=== PATIENT | male | born 1955 | race Caucasian/White ===

== ENCOUNTER 2017-07-18 09:07 | Outpatient (CLI) | payer BC ==
[2017-07-18 10:26] LABS: ALT (SGPT) 11 U/L (8-55); AST (SGOT) 17 U/L (5-34); Albumin 4.2 g/dL (3.4-4.8); Alkaline Phosphatase 74 U/L (40-150); Anion Gap 10 mmol/L (10-20); BUN (Urea Nitrogen) 13 mg/dL (8.4-25.7); Bilirubin, Total 0.6 mg/dL (0.2-1.2); Calc. Creatinine Clearance 0 mL/min (70-130); Calcium 9.6 mg/dL (7.8-10.44); Carbon Dioxide 31 mmol/L (23-31); Chloride 104 mmol/L (98-107); Estimated GFR-MDRD Greater than 90; Globulin 2.3 g/dL (2.4-3.5); Glucose 86 mg/dL (80-115); Potassium 4.9 mmol/L (3.5-5.1); Protein, Total 6.5 g/dL (5.8-8.1); Sodium 140 mmol/L (136-145)
[2017-07-18 11:43] LABS: Eosinophils 1 % (0-10); Hemoglobin 14.9 g/dL (14.0-18.0); Lymphocytes 66 % (21-51); MDiff Complete? YES; Mean Corpuscular HGB CONC 33.3 g/dL (32.0-36.0); Mean Corpuscular Hemoglobin 29.9 pg (27.0-31.0); Mean Corpuscular Volume 89.5 fl (80.0-94.0); Mean Platelet Volume 8.4 fL (7.4-10.4); Monocytes 3 % (0-10); Neutrophil 11 % (42-75); Platelet Count 123 thou/uL (130-400); RBC Distribution Width 12.1 % (11.5-14.5); Reactive Lymphocytes 19 % (0-10); Red Blood Cell (RBC) Count 4.99 mill/uL (4.70-6.10); White Blood Cell (WBC) Count 22.7 thou/uL (4.8-10.8)
--- NOTE | 2017-07-18 21:11 | EKG ---
Test Reason : Blood Pressure : / mmHG Vent. Rate : 061 BPM Atrial Rate : 061 BPM P-R Int : 174 ms QRS Dur : 098 ms QT Int : 372 ms P-R-T Axes : 060 059 068 degrees QTc Int : 374 ms Normal sinus rhythm Normal ECG No previous ECGs available Confirmed by ZOILA VELASQUEZ ([id number]) on 07/18/2017 9:11:38 PM Referred By: BRIELLE Confirmed By:ZOILA VELASQUEZ
== END 2017-07-18 09:08 | disposition home or self-care (01) ==
LOC: LABBT 09:07
PROVIDERS: ATTEND Surgery
DX: Z01.810 Encounter for preprocedural cardiovascular examination (principal); Z01.812 Encounter for preprocedural laboratory examination; K62.89 Other specified diseases of anus and rectum
CPT/HCPCS: 80053; 85025; 93005; 93010

== ENCOUNTER 2017-07-20 06:33 | Day surgery (SDC) | payer BC ==
[2017-07-18 09:23] VITALS: BMI 20.9
[2017-07-20] MEDS ORDERED: cefOXitin 2 GM, Syringe 1 ML in Sterile Water 10 ML SLOW IVP SCH (07:45)
[2017-07-20] MEDS ORDERED: Midazolam HCl 2 mg/2 ml Vial ONE (08:27)
[2017-07-20] MEDS ORDERED: Fentanyl 100 MCG/2 ML VIAL ONE (08:27)
[2017-07-20] MEDS ORDERED: Lidocaine 1% w/Epinephrine 1:200K 30 ML VIAL ONE (08:43)
[2017-07-20] MEDS ORDERED: Bupivacaine PF 0.5% 30 ML VIAL ONE (08:43)
[2017-07-20] MEDS ORDERED: Bacitracin Zinc Ointment 30 gm TUBE ONE (09:26)
--- NOTE | 2017-07-20 10:25 | OP ---
PREOPERATIVE DIAGNOSIS: Distal rectal mass. SURGEON: Victoriano Sosa M.D. PROCEDURE PERFORMED: Transanal resection of rectal mass. INDICATIONS: This is a 62-year-old male who has been having episodic rectal bleeding. Colonoscopy w as negative with the exception of a polypoid lesion in the distal rectum biopsy of which came back po ssible solitary rectal ulcer. FINDINGS: It was about a 1 cm irregular raised lesion with some inflammation. It could be a solitar y rectal ulcer versus neoplasm. PROCEDURE IN DETAIL: After informed consent was obtained, the patient was taken to the operating opal m and given general endotracheal anesthesia. He was placed in the lithotomy position. His perianal region was prepped and draped in the usual fashion. Local anesthesia infiltrated subcutaneously and deep as a four quadrant anal block. A bivalve anal retractor was inserted and the distal rectum insp ected. The lesion was identified on the posterior right side of the rectum. This was exposed with t he bivalve anal retractor. A 3-0 chromic suture was placed above it. Then using local anesthesia, t he mucosa was raised up. Then utilizing electrocautery, lesion was excised. It was sent to patholog y for further analysis. Hemostasis was achieved with electrocautery. The mucosa was closed with a r unning 3-0 chromic. Then hemostasis assured. Gelfoam impregnated with bacitracin inserted within th e anal canal and rectum. Sterile bandage applied. The patient tolerated the procedure well and ugalde sferred to recovery in good condition. Sponge and needle count verified correct x2.
== END 2017-07-20 11:25 | disposition home or self-care (01) ==
LOC: SDC 06:33
PROVIDERS: ATTEND Surgery
PROC: 0DBP7ZZ Excision of Rectum, Via Natural or Artificial Opening (ICD-10-PCS; principal; 2017-07-20)
DX: K62.1 Rectal polyp (principal); K64.9 Unspecified hemorrhoids; Z79.82 Long term (current) use of aspirin; Z79.899 Other long term (current) drug therapy; Z82.3 Family history of stroke; Z82.49 Family history of ischemic heart disease and other diseases of the circulatory system; Z98.890 Other specified postprocedural states
CPT/HCPCS: 88305; A4216; J0131; J0694; J2250; J3010; S0020

== ENCOUNTER 2017-11-28 09:30 | Outpatient (CLI) | payer BC | END 2017-11-28 09:31 | disposition home or self-care (01) | LOC: BICMAMMO 09:30 | PROVIDERS: ATTEND Family Medicine | DX: M85.80 Other specified disorders of bone density and structure, unspecified site (principal); C91.10 Chronic lymphocytic leukemia of B-cell type not having achieved remission; M85.89 Other specified disorders of bone density and structure, multiple sites | CPT/HCPCS: 77080 ==

== ENCOUNTER 2019-11-19 13:49 | Outpatient (CLI) | payer BC, MEDICARE ==
--- NOTE | 2019-11-19 14:21 | BD ---
DEXA BONE DENSITOMETRY: (Dual energy x-ray absorptiometry) DATE: 11/19/2019 HISTORY: 64-year old white male for age-related, osteoporosis screening. weight: 150 lbs height: 69 in. FINDINGS: The bone mineral density (BMD) is given in grams per square centimeter (g/cm2): LUMBAR SPINE: BMD (g/cm^2) T score Z score L1: 0.944 -1.2 -0.4 L2: 0.936 -1.4 -0.6 L3: 0.968 -1.2 -0.4 L4: 0.978 -1.0 -0.2 Total: 0.958 -1.2 -0.4 HIP: BMD (g/cm^2) T score Z score Femoral neck: 0.648 -2.1 -1.0 Total: 0.858 -1.2 -0.6 FRAX WHO fracture risk assessment tool: 10 year fracture risk* Major osteoporotic fracture: 13 % Hip fracture: 10.5 % Reported risk factors: [place] (), neck BMD = 0.648 (g/cm^2), BMI = 22.2, and parental fracture. *Fracture probability is calculated for an untreated patient. Fracture probability may be lower if th e patient has received treatment. IMPRESSION: 1.) The mean bone mineral density of the lumbar spine is osteopenic. Fracture risk is increased. 2) The bone mineral density of the femoral neck is osteopenic. Fracture risk is increased.
== END 2019-11-19 13:50 | disposition home or self-care (01) ==
LOC: BICMAMMO 13:49
PROVIDERS: ATTEND Internal Medicine
DX: M85.89 Other specified disorders of bone density and structure, multiple sites (principal)
CPT/HCPCS: 77080